=== PATIENT | male | born 1955 | race Caucasian/White ===

== ENCOUNTER 2022-06-27 12:47 | Observation (INO) ==
[~2022-06-27 12:47] MED LIST: Buffered Lidocaine 1% SYRIN 1 ml INTRADERM ONE; Lactated Ringers 1000 ml BAG 1,000 ML IV SCH; Naloxone 0.4 mg VIAL 0.4 mg/ml 1 ml VIAL IV PRN; Ondansetron 4 mg VIAL 2 MG/ML 2 ml VIAL IV PRN; ROPIVACAINE 5 MG/ML 30 ML BTL (0.5%) ONE; Tranexamic Acid 1,000 MG in NS 0.9% 50 ML IV ONE; ceFAZolin 2 GM in NS PREMIX 2 GM/100 ML BAG IVPB ONE; fentaNYL 100 mcg/2 ml 50 MCG/ML VIAL IV PRN; oxyCODONE/Acetamin 5/325 mg TAB PO PRN
[2022-06-27 13:47] LABS: Rapid COVID-19 Molecular Undetected (Undetected)
[2022-06-27] MEDS ORDERED: ROPIVACAINE 5 MG/ML 30 ML BTL (0.5%) ONE (15:37)
[2022-06-27] MEDS ORDERED: Midazolam 2 mg/2 ml VIAL 1 mg/ml 2 ml VIAL (2 mg) ONE (15:40)
[2022-06-27] MEDS ORDERED: Phenylephrine IV 10 MG/ML 1 ml VIAL ONE (15:40)
[2022-06-27] MEDS ORDERED: Lidocaine 2% PF 5 ML VIAL ONE (15:40)
[2022-06-27] MEDS ORDERED: fentaNYL 100 mcg/2 ml 50 MCG/ML VIAL ONE (16:26)
[2022-06-27] MEDS ORDERED: Ondansetron 4 mg VIAL 2 MG/ML 2 ml VIAL ONE (16:48)
[2022-06-27] MEDS ORDERED: Dexamethasone IV 4 MG/ML VIAL 1 ml VIAL ONE (16:48)
[2022-06-27] MEDS ORDERED: Propofol 10 MG/ML 20 ML BTL ONE ×2 (17:05→17:10)
[2022-06-27] MEDS ORDERED: Acetaminophen IV 1 GM/100ML 1,000 MG/100 ML BAG IV ONE (17:29)
[2022-06-27] MEDS ORDERED: Lactulose 30 ml UDC PO PRN (18:39)
[2022-06-27] MEDS ORDERED: Ondansetron ODT 4 mg TAB 4 MG TAB PO PRN (18:39)
[2022-06-27] MEDS ORDERED: Morphine 2 MG/ML SYRINGE IV PRN (18:39)
[2022-06-27] MEDS ORDERED: Magnesium Hydroxide LIQ 30 ML UDC PO PRN (18:39)
[2022-06-27] MEDS ORDERED: Ondansetron 4 mg VIAL 2 MG/ML 2 ml VIAL IV PRN (18:39)
[2022-06-27] MEDS ORDERED: Lactated Ringers 1000 ml BAG 1,000 ML IV SCH (19:00)
[2022-06-27] MEDS: Magnesium Hydroxide LIQ 30 ML UDC PO SCH (22:05)
[2022-06-28] MEDS: ceFAZolin 1 GM ADVAN 1 GM in NS 0.9% 50 ML 50 ML IVPB SCH ×2 (00:11→07:53)
[2022-06-28 06:43] LABS: Hematocrit 40.1 % (38-53); Hemoglobin 13.7 g/dL (13.2-16.3); Mean Platelet Volume 8.6 fL (7.5-11.2); Platelet Count 218 10^3/uL (150-450)
[2022-06-28 07:29] LABS: Calcium 8.7 mg/dL (8.6-10.3); Creatinine, Serum 0.9 mg/dL (0.67-1.17); Potassium 4.5 mmol/L (3.5-5.0); eGFR CKD-EPI 94.8 (>60)
[2022-06-28] MEDS: Magnesium Hydroxide LIQ 30 ML UDC PO SCH (07:58)
[2022-06-28] MEDS ORDERED: Vitamin THERAPEUTIC TAB PO SCH (09:00)
[2022-06-28] MEDS ORDERED: CMCS: Simvastatin 10 mg TAB (NF) PO SCH (09:00)
[2022-06-28] MEDS ORDERED: MULTIVITAMIN PO SCH (09:00)
[2022-06-28] MEDS ORDERED: Aspirin EC 81 mg TAB.EC (enteric coated) PO SCH (09:00)
[2022-06-28 10:43] VITALS: BP 137/90
== END 2022-06-28 15:00 | disposition home or self-care (01) ==
LOC: SSU 12:47 → OR 12:47
PROVIDERS: ADMIT Orthopaedic Surgery Adult Reconstructive Orthopaedic Surgery; ATTEND Orthopaedic Surgery Adult Reconstructive Orthopaedic Surgery

== ENCOUNTER 2023-12-15 06:46 | Observation (INO) ==
[2023-12-15 08:11] LABS: Hematocrit 40.1 % (38-53); Hemoglobin 13.8 g/dL (13.2-16.3); Mean Corpuscular Hemoglobin 34.9 pg (27-33); Mean Corpuscular Hgb Conc 34.5 g/dL (31-36); Mean Corpuscular Volume 101.1 fL (80-97); Mean Platelet Volume 7.6 fL (7.5-11.2); Platelet Count 459 10^3/uL (150-450); Red Blood Count 3.97 10^6/uL (4.06-5.63); Red Cell Distribution Width 14.4 % (12-17); White Blood Count 22.1 10^3/uL (3.6-10.2)
[2023-12-15 08:18] LABS: ABS Basophils 0.1 10^3/uL (0.0-0.1); ABS Lymphocytes 1.5 10^3/uL (1.0-4.8); ABS Monocytes 2.2 10^3/uL (0.0-1.1); ABS Neutrophils 18.2 10^3/uL (1.5-7.6); Eosinophil % 0.2 %; Lymphocyte % 6.9 %
[2023-12-15 08:33] LABS: Albumin/Globulin Ratio 0.9 (1-3); Calcium 8.5 mg/dL (8.6-10.3); Creatinine, Serum 0.9 mg/dL (0.67-1.17); Globulin 3.2 g/dL (2-4); Magnesium 1.5 mg/dL (1.9-2.7); Potassium 3.9 mmol/L (3.5-5.0); Total Bilirubin 1.7 mg/dL (0.2-1.0); Total Protein 6.2 g/dL (6.4-8.9); eGFR CKD-EPI 93.6 (>60)
[2023-12-15 08:46] LABS: TSH Ultra Thyroid Stim Horm 2.94 mcIU/mL (0.34-5.60)
[2023-12-15] MEDS: Iohexol 350 (CONTRAST) 500 ML MDV IV ONE (09:09)
[2023-12-15 09:26] LABS: High Sensitivity Troponin 1 Hr 5 pg/mL (<20)
[2023-12-15 09:45] LABS: Alcohol, S < 13 mg/dL (<13)
[2023-12-15 11:40] LABS: Urine Appearance Extra Turbid; Urine Bacteria Absent /HPF (Absent); Urine Bilirubin Negative (Negative); Urine Blood Negative (Negative); Urine Color Yellow; Urine Glucose Negative (Negative); Urine Ketones Trace (Negative); Urine Nitrite Negative (Negative); Urine Protein 1+ (>=30 mg/dL) (Negative); Urine Red Blood Cell 1+(3-5/hpf) /HPF (0-Trace); Urine Specific Gravity >1.050 (1.002-1.030); Urine Urobilinogen 3+ (Negative); Urine White Blood Cell Trace(0-5/hpf) /HPF (0-Trace)
[2023-12-15 11:41] LABS: Direct Bilirubin 0.7 mg/dL (0.03-0.18); Indirect Bilirubin 0.8 mg/dL (0.3-1.0); Total Bilirubin 1.5 mg/dL (0.2-1.0)
[2023-12-15 11:54] LABS: Urine Benzodiazepine Screen None Detected (None Detect); Urine Cannabinoids Screen None Detected (None Detect); Urine Opiates Screen None Detected (None Detect)
[2023-12-15] MEDS: Piperacillin/Tazobac 3.375 BAG 3.375 GM/100 ML BAG IV ONE (11:54)
[2023-12-15 14:07] LABS: C Reactive Protein 146.71 mg/L (<8.01)
[2023-12-15 14:28] LABS: Folate 3.18 ng/mL (5.90-24.80)
[2023-12-15 14:29] LABS: Vitamin B12 371 pg/mL (180-914)
[2023-12-15] MEDS: cefTRIAXone 1 gm/50 mL D5W 1 GM/50 ML BAG IV SCH (18:49)
[2023-12-15] MEDS: Azithromycin 500 mg/250 ml NS 500 MG/250 ML BAG IVPB SCH (19:22)
[2023-12-15] MEDS: Magnesium Sulf 4 GM/100 ML IV 4,000 MG/100 ML BAG IVPB ONE (19:30)
[2023-12-15] MEDS: Thiamine 100 MG/ML 2 ml VIAL 500 MG in NS 0.9% 250 ml 250 ML IV SCH (19:36)
[2023-12-15] MEDS: Cyanocobalamin INJ 1,000 MCG/ML VIAL 1 ML VIAL IM ONE (21:42)
[2023-12-16 07:01] LABS: ABS Eosinophils 0.1 10^3/uL (0.0-0.5); ABS Lymphocytes 1.5 10^3/uL (1.0-4.8); ABS Monocytes 1.4 10^3/uL (0.0-1.1); ABS Neutrophils 11.5 10^3/uL (1.5-7.6); Eosinophil % 0.9 %; Hematocrit 38.8 % (38-53); Hemoglobin 13.4 g/dL (13.2-16.3); Lymphocyte % 10.1 %; Mean Corpuscular Hemoglobin 34.8 pg (27-33); Mean Corpuscular Hgb Conc 34.4 g/dL (31-36); Mean Corpuscular Volume 101.1 fL (80-97); Platelet Count 401 10^3/uL (150-450); Red Blood Count 3.84 10^6/uL (4.06-5.63); Red Cell Distribution Width 14.4 % (12-17); White Blood Count 14.5 10^3/uL (3.6-10.2)
[2023-12-16 07:36] LABS: Albumin 2.9 g/dL (3.2-5.2); Albumin/Globulin Ratio 0.9 (1-3); Calcium 8.2 mg/dL (8.6-10.3); Creatinine, Serum 0.66 mg/dL (0.67-1.17); Globulin 3.1 g/dL (2-4); Potassium 3.4 mmol/L (3.5-5.0); eGFR CKD-EPI 102.8 (>60)
[2023-12-16] MEDS: Multivitamins/Minerals TAB PO SCH (09:21)
[2023-12-16 10:26] VITALS: BP 145/104
== END 2023-12-16 13:17 | disposition home or self-care (01) ==
LOC: EDHOLD 06:46 → ED 06:46 → SUATTDRO 17:50 → MEDTELE 21:35
PROVIDERS: ADMIT Student in an Organized Health Care Education/Training Program; ATTEND Internal Medicine